=== PATIENT | female | born 1965 | race Caucasian/White ===

== ENCOUNTER 2018-01-04 14:59 | Inpatient (IN) | payer MEDICAID ==
[~2018-01-04] VITALS: Ht 157.5 cm; Wt 50.9 kg
[2018-01-04] MEDS: SODIUM CHLORIDE 0.9% 1,000 ML IVB ONE ×2 (15:16→19:30)
[2018-01-04] MEDS: MORPHINE SULFATE 4 MG/ML SYR/VIAL IV ONE ×2 (15:30→19:30)
[2018-01-04] MEDS: ONDANSETRON HCL 4 MG/2 ML VIAL IV ONE ×2 (15:30→19:30)
[2018-01-04 16:21] LABS: Basophils # (auto) 0 uL; Basophils % (auto) 0.2 % (0.0-2.0); Eosinophils # (auto) 0 uL; Eosinophils % (auto) 0.3 % (0.0-7.0); Hematocrit 46.8 % (36.0-46.0); Hemoglobin 15.7 g/dL (12.2-16.2); Lymphocytes # (auto) 0.4 uL; Lymphocytes % (auto) 3.2 % (10.0-50.0); Mean Corpuscular Hemoglobin 29.5 pg (28.0-32.0); Mean Corpuscular Hgb Conc. 33.4 g/dL (32.0-36.0); Mean Corpuscular Volume 88.3 fL (80.0-100.0); Monocytes # (auto) 1.9 uL; Monocytes % (auto) 14.1 % (0.0-12.0); Neutrophils % (auto) 82.2 % (37.0-80.0); Nucleated Red Blood Cells % 0.1 %; Platelet Count (auto) 218 10^3/uL (140-450); Red Cell Distribution Width 12.8 % (11.8-14.3); White Blood Cell 13.4 10^3/uL (4.4-10.8)
[2018-01-04 16:33] LABS: INR 1.01 (0.9-1.15); Partial Thromboplastin Time 31.6 sec (22.64-33.71)
[2018-01-04 16:50] LABS: Alanine Aminotransferase 33 U/L (13-56); Albumin 3.2 g/dL (3.4-5.0); Alkaline Phosphatase 86 U/L (45-117); Anion Gap 8 (5-15); Aspartate Aminotransferase 17 U/L (15-37); BUN/Creatinine Ratio 16.1; Bilirubin, Total 0.9 mg/dL (0.2-1.0); Blood Urea Nitrogen 10 mg/dL (7-18); Calcium 9.8 mg/dL (8.5-10.1); Carbon Dioxide 25 mmol/L (21-32); Chloride 104 mmol/L (98-107); GFR African American 129 mL/min; GFR Non-African American 107 mL/min; Glucose 124 mg/dL (74-106); Lipase 125 U/L (73-393); Potassium 3.7 mmol/L (3.5-5.1); Sodium 137 mmol/L (136-145); Total Protein 7.3 g/dL (6.4-8.2)
[2018-01-04] MEDS: PIPERACILLIN-TAZOB 3.375GM 50 ML IV ONE ×2 (17:15→19:30)
[2018-01-04 19:40] LABS: Urine Bacteria NONE SEEN /hpf (None Seen); Urine Blood 1+ /uL (Negative); Urine Mucus FEW (None Seen); Urine Specific Gravity 1.021 (1.001-1.035); Urine WBC 90 /hpf (0 - 5)
[2018-01-04] MEDS: SODIUM CHLORIDE 0.9% 1,000 ML IV SCH (21:30)
[2018-01-04] MEDS ORDERED: cefTRIAXone 1GM/10ml IVPUSH 10 ML IV ONE (21:45)
[2018-01-04] MEDS ORDERED: ASPirin-EC 81 mg tab PO ONE (21:45)
[2018-01-04] MEDS ORDERED: LACTULOSE 20Gm/30ML SOLN PO ONE (21:45)
[2018-01-04 22:13] LABS: Alcohol, Urine < 3.0 mg/dL (0-5); Amphetamine Screen, Urine POSITIVE (NEGATIVE); Barbiturate Scree,Urine NEGATIVE (NEGATIVE); Benzodiazephine Screen, Urine NEGATIVE (NEGATIVE); Cannabinoid Screen, Urine POSITIVE (NEGATIVE); Cocaine Screen, Urine NEGATIVE (NEGATIVE); Opiate Scree,Urine NEGATIVE (NEGATIVE); Phencyclidine Screen, Urine NEGATIVE (NEGATIVE)
[2018-01-05] VITALS (7 sets, daily range): BP systolic 102–144; BP diastolic 63–81
[2018-01-05] MEDS: LORazepam 0.5 MG TAB PO PRN ×2 (00:06→10:21)
[2018-01-05] MEDS: IBUPROFEN 600 MG TAB PO PRN ×2 (00:06→13:30)
[2018-01-05 07:03] LABS: Hematocrit 44.8 % (36.0-46.0); Hemoglobin 14.7 g/dL (12.2-16.2); Mean Corpuscular Hemoglobin 29.4 pg (28.0-32.0); Mean Corpuscular Hgb Conc. 32.9 g/dL (32.0-36.0); Mean Corpuscular Volume 89.5 fL (80.0-100.0); Platelet Count (auto) 217 10^3/uL (140-450); Red Cell Distribution Width 12.6 % (11.8-14.3); White Blood Cell 11.6 10^3/uL (4.4-10.8)
[2018-01-05 07:12] LABS: Potassium 3.8 mmol/L (3.5-5.1)
[2018-01-05 07:14] LABS: BUN/Creatinine Ratio 12.9
[2018-01-05 07:27] LABS: Band Neutrophils % (manual) 0
[2018-01-05 07:28] LABS: Basophils % (manual) 0 (0.0-2.0); Blast Cells 0; Eosinophils % (manual) 0 (0-7); Metamyelocytes % 0; Myelocytes % 0; Promyelocytes % 0; Reactive Lymphocytes 0
[2018-01-05 08:09] LABS: Lymphocytes % (manual) 5 (10.0-50.0); Monocytes % (manual) 15 (0-12)
[2018-01-05] MEDS: ASPirin-EC 81 mg tab PO SCH (10:21)
[2018-01-05] MEDS: LACTULOSE 20Gm/30ML SOLN PO SCH (10:22)
[2018-01-05] MEDS: cefTRIAXone 1GM/10ml IVPUSH 10 ML IV SCH (10:29)
[2018-01-05] MEDS: SODIUM CHLORIDE 0.9% 1,000 ML IV SCH ×2 (10:29→17:36)
[2018-01-05] MEDS ORDERED: PANTOPRAZOLE 40 MG TAB PO ONE (13:15)
[2018-01-05] MEDS: ONDANSETRON HCL 4 MG/2 ML VIAL IV PRN (21:04)
[2018-01-05] MEDS: MORPHINE SULFATE 4 MG/ML SYR/VIAL IV PRN (21:04)
[2018-01-06] MEDS: LORazepam 0.5 MG TAB PO PRN (00:41)
[2018-01-06] MEDS: SODIUM CHLORIDE 0.9% 1,000 ML IV SCH ×3 (03:57→22:33)
[2018-01-06 05:00] VITALS: BP 150/91
[2018-01-06] MEDS: ONDANSETRON HCL 4 MG/2 ML VIAL IV PRN ×2 (05:51→21:06)
[2018-01-06] MEDS: MORPHINE SULFATE 4 MG/ML SYR/VIAL IV PRN ×4 (05:52→21:06)
[2018-01-06 06:27] LABS: Basophils # (auto) 0 uL; Basophils % (auto) 0.3 % (0.0-2.0); Eosinophils # (auto) 0.1 uL; Eosinophils % (auto) 1.3 % (0.0-7.0); Hematocrit 41.9 % (36.0-46.0); Hemoglobin 14.1 g/dL (12.2-16.2); Lymphocytes # (auto) 0.8 uL; Lymphocytes % (auto) 7.3 % (10.0-50.0); Mean Corpuscular Hemoglobin 29.5 pg (28.0-32.0); Mean Corpuscular Hgb Conc. 33.6 g/dL (32.0-36.0); Mean Corpuscular Volume 87.8 fL (80.0-100.0); Monocytes # (auto) 1.8 uL; Monocytes % (auto) 16.4 % (0.0-12.0); Neutrophils # (auto) 8.1 uL; Neutrophils % (auto) 74.7 % (37.0-80.0); Nucleated Red Blood Cells % 0.1 %; Platelet Count (auto) 233 10^3/uL (140-450); Red Blood Cells 4.77 10^6/uL (4.0-5.20); Red Cell Distribution Width 12.7 % (11.8-14.3); White Blood Cell 10.9 10^3/uL (4.4-10.8)
[2018-01-06 06:43] LABS: Calcium 9.8 mg/dL (8.5-10.1); Potassium 3.7 mmol/L (3.5-5.1)
[2018-01-06 06:46] LABS: BUN/Creatinine Ratio 9.3
[2018-01-06 08:30] VITALS: BP 124/71
[2018-01-06] MEDS: LACTULOSE 20Gm/30ML SOLN PO SCH (09:39)
[2018-01-06] MEDS: ASPirin-EC 81 mg tab PO SCH (09:40)
[2018-01-06] MEDS: cefTRIAXone 1GM/10ml IVPUSH 10 ML IV SCH (09:40)
[2018-01-06] MEDS: PANTOPRAZOLE 40 MG TAB PO SCH (09:40)
[2018-01-06 13:00] VITALS: BP 131/75
[2018-01-06 16:52] VITALS: BP 129/76
[2018-01-06 22:42] VITALS: BP 99/67
[2018-01-07 05:49] VITALS: BP 126/78
[2018-01-07] MEDS: MORPHINE SULFATE 4 MG/ML SYR/VIAL IV PRN ×3 (06:54→13:41)
[2018-01-07] MEDS: ONDANSETRON HCL 4 MG/2 ML VIAL IV PRN ×2 (06:54→13:40)
[2018-01-07 07:01] LABS: Potassium 4.6 mmol/L (3.5-5.1)
[2018-01-07 07:13] LABS: Albumin 2.3 g/dL (3.4-5.0); BUN/Creatinine Ratio 10.9; Calcium 9.5 mg/dL (8.5-10.1)
[2018-01-07 07:16] LABS: Bilirubin, Total 0.3 mg/dL (0.2-1.0); Total Protein 5.8 g/dL (6.4-8.2)
[2018-01-07 07:22] LABS: Basophils # (auto) 0 uL; Basophils % (auto) 0.4 % (0.0-2.0); Eosinophils # (auto) 0.4 uL; Eosinophils % (auto) 5.5 % (0.0-7.0); Hematocrit 41.7 % (36.0-46.0); Hemoglobin 13.8 g/dL (12.2-16.2); Mean Corpuscular Hemoglobin 29.3 pg (28.0-32.0); Mean Corpuscular Hgb Conc. 33.2 g/dL (32.0-36.0); Mean Corpuscular Volume 88.2 fL (80.0-100.0); Monocytes # (auto) 1.2 uL; Monocytes % (auto) 17.2 % (0.0-12.0); Neutrophils # (auto) 4.4 uL; Neutrophils % (auto) 62.9 % (37.0-80.0); Nucleated Red Blood Cells % 0.2 %; Platelet Count (auto) 257 10^3/uL (140-450); Red Blood Cells 4.73 10^6/uL (4.0-5.20); Red Cell Distribution Width 12.7 % (11.8-14.3)
[2018-01-07 08:00] VITALS: BP 134/77
[2018-01-07] MEDS: cefTRIAXone 1GM/10ml IVPUSH 10 ML IV SCH (09:00)
[2018-01-07] MEDS: SODIUM CHLORIDE 0.9% 1,000 ML IV SCH (09:00)
[2018-01-07] MEDS: LACTULOSE 20Gm/30ML SOLN PO SCH (09:17)
[2018-01-07] MEDS: ASPirin-EC 81 mg tab PO SCH (09:17)
[2018-01-07] MEDS: PANTOPRAZOLE 40 MG TAB PO SCH (09:17)
[2018-01-07 09:29] VITALS: BP 128/72
[2018-01-07] MEDS: LORazepam 0.5 MG TAB PO PRN (11:40)
[2018-01-07 13:00] VITALS: BP 126/71
[2018-01-07] MEDS ORDERED: LACTULOSE 20Gm/30ML SOLN PO ONE (13:45)
[2018-01-07 14:26] VITALS: BP 126/71
== END 2018-01-07 15:30 | disposition home or self-care (01) | DRG 463 ==
LOC: ER 14:59 → EDBD 14:59 → OVERFLOW 15:00 → CENTRAL 22:28
PROVIDERS: ADMIT Nurse Practitioner Family; ATTEND Internal Medicine
DX: N39.0 Urinary tract infection, site not specified (principal); E43 Unspecified severe protein-calorie malnutrition; B19.20 Unspecified viral hepatitis C without hepatic coma; F17.210 Nicotine dependence, cigarettes, uncomplicated; K59.00 Constipation, unspecified; G43.909 Migraine, unspecified, not intractable, without status migrainosus; F41.9 Anxiety disorder, unspecified; Z82.49 Family history of ischemic heart disease and other diseases of the circulatory system; Z82.1 Family history of blindness and visual loss; Z82.2 Family history of deafness and hearing loss; Z84.89 Family history of other specified conditions; Z88.8 Allergy status to other drugs, medicaments and biological substances; Z88.5 Allergy status to narcotic agent; Z68.20 Body mass index [BMI] 20.0-20.9, adult; E88.09 Other disorders of plasma-protein metabolism, not elsewhere classified
CPT/HCPCS: 36415; 70450; 74176; 80048; 80053; 80307; 81001; 83605; 83690; 84484; 85007; 85025; 85027; 85610; 85730; 87040; 87086; 93005; 96365; 96366; 96375; J2405; J2543

== ENCOUNTER 2024-06-12 15:37 | Emergency (ER) | payer MEDICAID ==
[~2024-06-12] VITALS: Ht 157.5 cm; Wt 50.0 kg
[2024-06-12] MEDS: ONDANSETRON ODT 4 MG TAB PO ONE (16:12)
[2024-06-12] MEDS: HYDROmorphone HCL 2 MG/ML VL/or syr IM ONE (16:13)
[2024-06-12 16:18] VITALS: BP 142/88; PULSE 86; RESP 18; TEMP 98.6; O2SAT 96
[2024-06-12 17:03] LABS: Basophils # (auto) 0 10 ^3/uL (0-0.2); Basophils % (auto) 0.4 % (0.0-2.0); Eosinophils # (auto) 0.1 10 ^3/uL (0-0.8); Eosinophils % (auto) 2.4 % (0.0-7.0); Hematocrit 48.1 % (36.0-46.0); Hemoglobin 16.4 g/dL (12.2-16.2); Lymphocytes # (auto) 0.1 10 ^3/uL (0.4-5.4); Lymphocytes % (auto) 2.9 % (10.0-50.0); Mean Corpuscular Hemoglobin 31.7 pg (28.0-32.0); Mean Corpuscular Volume 93.1 fL (80.0-100.0); Monocytes # (auto) 0.7 10 ^3/uL (0-1.3); Monocytes % (auto) 13.3 % (0.0-12.0); Red Blood Cells 5.17 10^6/uL (4.0-5.20); Red Cell Distribution Width 13.9 % (11.8-14.3); White Blood Cell 4.9 10^3/uL (4.4-10.8)
[2024-06-12 17:21] LABS: Alanine Aminotransferase 61 U/L (7-40); Albumin 4.2 g/dL (3.2-4.8); Alkaline Phosphatase 105 U/L (46-116); Anion Gap 7 (5-15); Aspartate Aminotransferase 57 U/L (13-40); Bilirubin, Total 1.2 mg/dL (0.2-1.0); Blood Alcohol < 3.0 mg/dL (<10); Calcium 10.3 mg/dL (8.7-10.4); Carbon Dioxide 25 mmol/L (20-30); Chloride 103 mmol/L (98-107); Glucose 97 mg/dL (74-106); Potassium 3.7 mmol/L (3.5-5.1); Sodium 135 mmol/L (136-145)
[2024-06-12 17:23] LABS: BUN/Creatinine Ratio 7.7 (10.0-20.0); Blood Urea Nitrogen < 5 mg/dL (9-23)
[2024-06-12 18:22] LABS: Lipase 27 U/L (12-53)
[2024-06-12 22:39] LABS: Urine Bacteria FEW /hpf (None Seen); Urine Blood 1+ /uL (Negative); Urine Clarity Clear (Clear); Urine Color Yellow (Yellow); Urine Hyaline Cast FEW /lpf (0 - 2); Urine Mucus FEW (None Seen); Urine Protein, UAD TRACE (Negative); Urine Specific Gravity 1.024 (1.001-1.035); Urine Urobilinogen Normal (Negative); Urine WBC 10 /hpf (0 - 5); Urine pH 6.5 (5.0-9.0)
== END 2024-06-13 00:59 | disposition left against medical advice (07) ==
LOC: EDUNIT# 15:37 → EDBD 15:37 → ER 15:42
DX: N39.0 Urinary tract infection, site not specified (principal); K63.89 Other specified diseases of intestine; F41.9 Anxiety disorder, unspecified; F17.210 Nicotine dependence, cigarettes, uncomplicated; Z88.5 Allergy status to narcotic agent; Z88.6 Allergy status to analgesic agent
CPT/HCPCS: 36415; 74176; 80053; 80320; 81001; 83605; 83690; 84484; 85025; 96372; 99285; J1170; Q0162